=== PATIENT | female | born 1990 | race Caucasian/White ===

== ENCOUNTER 2017-07-06 10:52 | Emergency (ER) | payer SELFPAY ==
[2017-07-06 11:02] VITALS: BP 137/79
--- NOTE | 2017-07-06 11:11 | ERNOTE ---
[facility] Date of Service: 07/06/17 Presenting Symptoms: eye pain Time Seen by Provider: 07/06/17 11:02 Source: patient Exam Limitations: no limitations - Immun/Allergies/Home Medications Immunizations: IMMUNIZATION HX Immunizations Up to Date Yes Allergies/Adverse Reactions: Allergies Allergy/AdvReac Type Severity Reaction Status Date / Time No Known Allergies Allergy Unverified 07/06/17 11:02 Home Medications: HOME MEDICATIONS Ketotifen Fumarate [Zaditor] 1 - 2 drp OP BID #1 bottle 07/06/17 [Last Taken Unknown] - History of Present Illness Narrative: Pt. comes in with c/o eye pain and irritation for a week. Pt. states that it only happens when she is working and improves when she is at home. Pt. works at [employer]. Pt. denies and vision changes or drainage. Severity: Present: mild ENT Location: Present: eye (R), eye (L) Prearrival Treatment: Present: no prearrival treatment Modifying Factors - Improves: Reports: other - home Modifying Factors - Worsens: Reports: other - work Associated Symptoms - ENT: Reports: denies symptoms. Denies: nasal congestion/ drainage Prior Treament: Denies: recently seen, treated by physician, recently hospitalized, similar symptoms before, currently on antibiotics Review of Systems - Review of Systems Constitutional: Present: no symptoms reported. Absent: fever, chills, weakness , fatigue, malaise EYE: Present: eye pain. Absent: eye discharge, blurred vision, double vision, vision changes, tearing ENT: Present: no symptoms reported Respiratory: Present: no symptoms reported. Absent: shortness of breath, cough , wheezing Cardiology: Present: no symptoms reported. Absent: chest pain, edema Gastrointestinal/Abdominal: Present: no symptoms reported. Absent: nausea, abdominal pain Genitourinary: Present: no symptoms reported. Absent: frequency, decreased urinary output Musculoskeletal: Present: no symptoms reported. Absent: back pain, joint pain Skin: Present: no symptoms reported. Absent: rash, lesions, lumps Neurological: Present: no symptoms reported. Absent: headache, dizziness/light- headedness, numbness, tingling All Other Systems: All systems neg except as marked - Patient's Past Medical History Patient History - Medical: No pertinent hx Patient History - Cardiac/Respiratory: No pertinent hx Patient History - Cancer: No Hx of Cancer Patient History - Surgical Procedures: No surgical history Patient History - Other: None LMP (females 10-50): last week - Social History Living Situations: home Psych History: No pertinent hx Smoking Status: Never smoker Alcohol Use: none Drug Use: none - Immunizations Immunizations Up to Date: Yes Physical Exam - Physical Exam General Appearance: Present: wd/wn, alert, no apparent distress Head Exam: Present: normal inspection, no evidence of injury, no tenderness w palpation Eye Exam: Eyelid inflammation: bilateral, Other: bilateral - scleral inflammation mild Ears, Nose, Throat: Present: normal ENT inspection, normal pharynx Neck: Present: normal inspection, nontender, supple, full range of motion. Absent: lymphadenopathy (R), lymphadenopathy (L) Respiratory: Present: no respiratory distress, normal breath sounds, no accessory muscle use, chest nontender, lungs clear Cardiovascular/Chest: Present: regular rate, rhythm, no murmur, normal peripheral pulses Gastrointestinal/Abdominal: Present: normal bowel sounds Back Exam: Present: normal inspection Extremity Exam: Present: normal inspection Neurological Exam: Present: alert, oriented, normal mood/affect, no motor/ sensory deficits Skin Exam: Present: normal color, warm/dry. Absent: pallor, skin rash ED Progress - Date and Time Seen: Date and Time: 07/06/17 15:17 I believe that pt. irritation is likley from chemical gas in the air where pt. works that she may be allergic to so will start on zadiator but pt. may need steroid drops if she does not improve. - Vital Signs Patient's Vital Signs:: I have reviewed the patient's vital signs. Vital Signs: Vital Signs 07/06/17 10:59 Temperature 37.1 C Pulse Rate 74 Respiratory 15 Rate Blood Pressure 137/79 O2 Sat by Pulse 99 Oximetry - Progress/Reassessment Progress:: Unchanged Departure Clinical Impression: Chemical conjunctivitis of both eyes, Allergic conjunctivitis of both eyes - Departure Disposition: Home self-care Condition: Good Instructions: Chemical Conjunctivitis, [id number], Form - Excuse from Work, School, or Physical Activity Additional Instructions: Please use allergy drops twice a day and use saline drops every hour while at work. Wash your hands well and make sure to wear gogglwes and not touch eyes with gloves on. Please follow up with eye doctor in 2-3 days if not improving. Prescriptions: Ketotifen Fumarate [Zaditor] 1 - 2 drp OP BID #1 bottle
== END 2017-07-06 11:15 | disposition home or self-care (01) ==
LOC: ER 10:52
DX: H10.13 Acute atopic conjunctivitis, bilateral; H10.213 Acute toxic conjunctivitis, bilateral